=== PATIENT | female | born 2000 | race Caucasian/White ===

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

== ENCOUNTER → 2020-02-06 | Outpatient (CLI) | payer BC ==
[~2020-02-06] MED LIST: ASCO100T6 PO; CEFD300C3 PO; CETI10TA21 PO; ESCI10TA PO; TRAZ-227 PO
--- NOTE | 2020-02-06 18:45 | Diagnostic Imaging Report ---
PROCEDURE: US pelvic (non-OB) TECHNIQUE: Multiple real-time grayscale images were obtained over the pelvis in various projections, transabdominally. INDICATION: Polycystic ovary syndrome. COMPARISON: There is no prior study available for comparison. FINDINGS: The uterus is nongravid and not enlarged, measuring 6.1 x 3.1 x 4.1 cm. The endometrial lining is not abnormally thickened, measuring 5 mm. There is no focal mass involving the uterus to suggest a fibroid. Both ovaries were identified. The ovaries are generally unremarkable. There may be one or two subcentimeter follicles associated with each ovary. There is no pelvic mass or free fluid collection evident. IMPRESSION: 1. There is no evidence for an acute pelvic abnormality. 2. There only one or two small follicles associated with each ovary. Dictated by: Dictated on workstation # [id number]
== END ==
LOC: RAD 15:15
PROVIDERS: ATTEND Obstetrics & Gynecology
DX: E28.2 Polycystic ovarian syndrome (principal); R14.0 Abdominal distension (gaseous); N85.4 Malposition of uterus
CPT/HCPCS: 76856